=== PATIENT | male | born 1965 | race African-American/Black ===

== ENCOUNTER 2021-05-20 11:05 | Emergency (ER) | payer OTHER ==
--- NOTE | 2021-05-20 11:29 | Emergency Department Report ---
HPI - General Time Seen by Provider: 05/20/21 11:18 - HPI HPI: Room 5 The patient is a 55-year-old male present with a chief complaint of syncopal episode. The patient states he was at work when outside to smoke a cigarette. Patient states he began to feel dizzy walked into the building and felt weak so he sat down. Patient denies loss of consciousness. However speaking to the patient's she states she received a phone call from the patient's job telling her that the patient had "passed out." I spoke with coworkers they state they saw the patient walking to the building then laid down on the ground. When coworkers went to check on him they say he was unresponsive. When asked if there were any convulsions or tensing up the coworker states "a little bit." He states he saw saliva coming from the patient's mouth and the patient was not responding until approximately 5 minutes later. Coworkers picked patient up and placed him in a chair. In the ED the patient smells as though he was incontinent of stool. Patient currently denies complaints ED Past Medical Hx - Past Medical History Hx Heart Attack/AMI: Yes - Surgical History Hx Coronary Stent: Yes - Family History Family history: no significant - Social History Smoking Status: Current Some Day Smoker Substance Use Type: None - Medications Home Medications: Home Medications Medication Instructions Recorded Confirmed Last Taken Type No Known Home Medications [No 05/20/21 05/20/21 Unknown History Reported Home Medications] ED Review of Systems ROS: Stated complaint: AMS/ANNA Other details as noted in HPI Constitutional: weakness Eyes: denies: eye pain ENT: denies: throat pain Respiratory: denies: shortness of breath Cardiovascular: denies: chest pain Endocrine: no symptoms reported Gastrointestinal: denies: abdominal pain Genitourinary: denies: dysuria Musculoskeletal: denies: back pain Neurological: other (Dizziness). denies: headache Physical Exam - Physical Exam Physical Exam: GENERAL: The patient is well-developed well-nourished male lying on stretcher no t appearing to be in acute distress. [] HEENT: Normocephalic. Atraumatic. Extraocular motions are intact. Patient has moist mucous membranes. NECK: Supple. Trachea midline CHEST/LUNGS: Clear to auscultation. There is no respiratory distress noted. HEART/CARDIOVASCULAR: Regular. There is no tachycardia. There is no gallop rub or murmur. ABDOMEN: Abdomen is soft, nontender. Patient has normal bowel sounds. There is no abdominal distention. SKIN: There is no rash. There is no edema. There is no diaphoresis. NEURO: The patient is awake, alert, and oriented. The patient is cooperative. The patient has no focal neurologic deficits. The patient has normal speech. Cranial nerves II through XII grossly intact MUSCULOSKELETAL: There is no evidence of acute injury. ED Course - Consultations Consultation #1: 05/20/21 18:40 Case discussed with [facility] physician Dr. Dotson- will discuss with hospitalist and will call back ED Medical Decision Making - Lab Data Result diagrams: 05/20/21 11:25 05/20/21 11:25 - EKG Data -: EKG Interpreted by Ks EKG shows normal: sinus rhythm Rate: normal - EKG Data When compared to previous EKG there are: previous EKG unavailable Interpretation: nonspecific ST-T wave naa, LVH - Radiology Data Radiology results: report reviewed (CT head, CT chest), image reviewed (CT head, CT chest) [place] [address] Cat Scan Report Signed Patient: JOANN NAVA MR#: [id number] : 1965 Acct:[id number] Age/Sex: 55 / M ADM Date: 05/20/21 Loc: ED Attending Dr: Ordering Physician: JASSI MAGUIRE MD Date of Service: 05/20/21 Procedure(s): CT head/brain wo con Accession Number(s): [id number] cc: JASSI MAGUIRE MD CT HEAD WITHOUT CONTRAST INDICATION / CLINICAL INFORMATION: Syncope. TECHNIQUE: All CT scans at this location are performed using CT dose reduction for ALARA by means of automated exposure control. COMPARISON: None available. FINDINGS: HEMORRHAGE: None. EXTRA-AXIAL SPACES: Normal in size and morphology for the patient's age. VENTRICULAR SYSTEM: No hydrocephalus. Incidental cavum septum pellucidum et vergae. CEREBRAL PARENCHYMA: No significant abnormality. No acute territorial infarct. Faint bilateral basal ganglia calcifications. MIDLINE SHIFT / HERNIATION: None. CEREBELLUM / BRAINSTEM: No significant abnormality. ORBITS: Normal as visualized. SOFT TISSUES: No significant abnormality. SKULL: No significant abnormality. PARANASAL SINUSES / MASTOID AIR CELLS: Normal as visualized. ADDITIONAL FINDINGS: None. IMPRESSION: 1. No acute intracranial abnormality. Signer Name: Olman Cruz MD Signed: 05/20/2021 1:35 PM Wor kstation Name: [id number] Transcribed By: AMY Dictated By: OLMAN CRUZ MD Electronically Authenticated By: OLMAN CRUZ MD Signed Date/Time: 05/20/211334 DD/ 30 TD/TT: Print Cancel [facility] [address] [place] [address] Cat Scan Report Signed Patient: JOANN NAVA MR#: [id number] : 1965 Acct:[id number] Age/Sex: 55 / M ADM Date: 05/20/21 Loc: ED Attending Dr: Ordering Physician: JASSI MAGUIRE MD Date of Service: 05/20/21 Procedure(s): CT angio chest Accession Number(s): [id number] cc: JASSI MAGUIRE MD CTA CHEST WITH IV CONTRAST INDICATION: Syncope. TECHNIQUE: Axial CT images were obtained through the chest after injection of 100 cc Omnipaque 350 IV contrast. 3 plane MIP reconstructions were produced. All CT scans at this location are performed using CT dose reduction for ALARA by means of automated exposure control. COMPARISON: None available. FINDINGS: Pulmonary Arteries: No pulmonary emboli. Lungs: No significant abnormality. Trachea and Bronchi: No significant abnormality. Heart and Pericardium: Moderately extensive coronary artherosclerotic calcifications Vasculature: No significant abnormality. Lymphatics: No lymphadenopathy. Additional Findings: None. Upper Abdomen: Cholelithiasis and hepatic steatosis noted. Skeletal Structures: No acute findings or aggressive bone lesions. IMPRESSION: 1. No CT evidence for pulmonary embolism. 2. No acute findings. 3. Multiple incidental findings described above. Signer Name: Jareth Zavala MD Signed: 05/20/2021 5:55 PM Workstation Name: [id number] Transcribed By: SHAWNA Dictated By: Jareth Zavala MD Electronically Authenticated By: Jareth Zavala MD Signed Date/Time: 05/20/211754 DD/ 52 TD/TT: Print Cancel - Differential Diagnosis Syncope, seizure, dysrhythmia, PE, ACS Critical care attestation.: If time is entered above; I have spent that time in minutes in the direct care of this critically ill patient, excluding procedure time. ED Disposition Clinical Impression: Syncope Disposition: DC/TX-70 ANOTHER TYPE HLTHCARE Is pt being admited?: No Does the pt Need Aspirin: No Condition: Stable Instructions: Syncope (ED) Referrals: ALBARO WEBBER [Other] - 3-5 Days Time of Disposition: 19:14 (Awaiting acceptance)
[2021-05-20 11:53] LABS: Basophils % (Auto) 0.1 % (0.0-1.8); Eosinophils % (Auto) 0.2 % (0.0-4.3); Hematocrit 41.3 % (35.5-45.6); Hemoglobin 14.4 gm/dl (11.8-15.2); Lymphocytes # (Auto) 1.2 K/mm3 (1.2-5.4); Mean Corpuscular HGB Conc 35 % (32-34); Mean Corpuscular Volume 93 fl (84-94); Monocytes # (Auto) 0.2 K/mm3 (0.0-0.8); Monocytes % (Auto) 2.8 % (0.0-7.3); Platelet Count 188 K/mm3 (140-440); Red Blood Count 4.45 M/mm3 (3.65-5.03); Red Cell Distribution Width 13.4 % (13.2-15.2)
[2021-05-20 12:03] LABS: Creatine Kinase MB 3.1 ng/mL (0.0-4.0); INR 0.94 (0.87-1.13)
[2021-05-20 12:04] LABS: Alanine Aminotransferase 52 units/L (7-56); Albumin 3.8 g/dL (3.9-5); Blood Urea Nitrogen 15 mg/dL (9-20); Calcium 8.4 mg/dL (8.4-10.2); Hemolysis Index 6
[2021-05-20 12:05] LABS: BUN/Creatinine Ratio 21
--- NOTE | 2021-05-20 13:39 | Cat Scan Report ---
CT HEAD WITHOUT CONTRAST INDICATION / CLINICAL INFORMATION: Syncope. TECHNIQUE: All CT scans at this location are performed using CT dose reduction for ALARA by means of automated exposure control. COMPARISON: None available. FINDINGS: HEMORRHAGE: None. EXTRA-AXIAL SPACES: Normal in size and morphology for the patient's age. VENTRICULAR SYSTEM: No hydrocephalus. Incidental cavum septum pellucidum et vergae. CEREBRAL PARENCHYMA: No significant abnormality. No acute territorial infarct. Faint bilateral basal ganglia calcifications. MIDLINE SHIFT / HERNIATION: None. CEREBELLUM / BRAINSTEM: No significant abnormality. ORBITS: Normal as visualized. SOFT TISSUES: No significant abnormality. SKULL: No significant abnormality. PARANASAL SINUSES / MASTOID AIR CELLS: Normal as visualized. ADDITIONAL FINDINGS: None. IMPRESSION: 1. No acute intracranial abnormality. Signer Name: Olman Cruz MD Signed: 05/20/2021 1:35 PM Workstation Name: [id number]
[2021-05-20 15:10] LABS: Amphetamine Screen,Urine PRESUMPTIVE NEGATIVE
[2021-05-20 15:11] LABS: Benzodiazepines Screen,Urine PRESUMPTIVE NEGATIVE; Cannabinoid Screen,Urine PRESUMPTIVE NEGATIVE; Cocaine Screen,Urine PRESUMPTIVE NEGATIVE; Methadone Screen,Urine PRESUMPTIVE NEGATIVE; Opiate Screen,Urine PRESUMPTIVE NEGATIVE
--- NOTE | 2021-05-20 17:59 | Cat Scan Report ---
CTA CHEST WITH IV CONTRAST INDICATION: Syncope. TECHNIQUE: Axial CT images were obtained through the chest after injection of 100 cc Omnipaque 350 IV contrast. 3 plane MIP reconstructions were produced. All CT scans at this location are performed using CT dose reduction for ALARA by means of automated exposure control. COMPARISON: None available. FINDINGS: Pulmonary Arteries: No pulmonary emboli. Lungs: No significant abnormality. Trachea and Bronchi: No significant abnormality. Heart and Pericardium: Moderately extensive coronary artherosclerotic calcifications Vasculature: No significant abnormality. Lymphatics: No lymphadenopathy. Additional Findings: None. Upper Abdomen: Cholelithiasis and hepatic steatosis noted. Skeletal Structures: No acute findings or aggressive bone lesions. IMPRESSION: 1. No CT evidence for pulmonary embolism. 2. No acute findings. 3. Multiple incidental findings described above. Signer Name: Jareth Zavala MD Signed: 05/20/2021 5:55 PM Workstation Name: [id number]
[2021-05-20] MEDS ORDERED: POTASSIUM CHLORIDE ER 20 MEQ TAB PO ONE (18:33)
[2021-05-20] MEDS ORDERED: ASPIRIN 325 MG TAB PO ONE (18:39)
[2021-05-21 02:13] VITALS: BP 110/60
--- NOTE | 2021-05-22 12:11 | Electrocardiograph Report ---
[facility] Test Date: 2021-05-20 Test Time: 11:11:45 Pat Name: JOANN NAVA Department: Room: Gender: M Second Operator: NOEL : 1965 Requested By: JASSI MAGUIRE Order Number: [id number] Reading MD: Gemma Geiger Measurements Intervals [place] Rate: 64 P: 42 IA: 166 QRS: 27 QRSD: 100 T: 99 QT: 418 QTc: 431 Interpretive Statements Sinus rhythm LVH with secondary repolarization abnormality Inferior infarct, old Anterior infarct, old No previous ECG available for comparison Electronically Signed On 05-22-2021 12:11:38 EDT by Gemma Geiger
== END 2021-05-21 02:37 | disposition other institution (70) ==
LOC: ED 11:05
DX: R55 Syncope and collapse (principal); I25.2 Old myocardial infarction; F17.200 Nicotine dependence, unspecified, uncomplicated
CPT/HCPCS: 36415; 70450; 71275; 80053; 80307; 82550; 82553; 83735; 84484; 85025; 85379; 85610; 93005; 99285; Q9967; 80320; G0480